=== PATIENT | female | born 1970 | race Caucasian/White ===

== ENCOUNTER 2017-02-15 20:33 | Emergency (ER) | payer BC ==
[~2017-02-15] VITALS: Ht 157.5 cm; Wt 127.0 kg
--- NOTE | 2017-02-15 20:40 | ED.ADGEN ---
Past History Past Medical History: Hypertension, Migraines Adult General Chief Complaint Chief Complaint ".. I had busy stressful day... "... And I got one of my migraines..." HPI HPI Patient is a 46 year old female who presents with above hx and complaints of one of her typical migraine headaches. She has been reportedly worked up before for her headaches including CT with no specific pathology finding. All workups been negative. Patient feels headaches are brought on by muscle tension and stress. Patient denies any trauma. Patient denies any travel. Patient denies any specific ill contacts. Patient denies any immunosuppression. Patient denies any drug use. Patient denies any History cancer. Patient denies any history of fevers. Patient does have some trapezius muscle tension and scalp is tender to palpation. Patient does have a history of hypertension and reportedly hasn't taken her meds as directed. Patient normally follows with . She does request to be treated clinically if all possible and avoid labs and CT at this time. Review of Systems Review of Systems Constitutional: Denies fever or chills [] Eyes: Denies change in visual acuity, redness, or eye pain [] HENT: Denies nasal congestion or sore throat [] Respiratory: Denies cough or shortness of breath [] Cardiovascular: No additional information not addressed in HPI [] GI: Denies abdominal pain, nausea, vomiting, bloody stools or diarrhea [] : Denies dysuria or hematuria [] Musculoskeletal: Denies back pain or joint pain [] Integument: Denies rash or skin lesions [] Neurologic: Complaints of tension headache. Denies focal weakness or sensory changes [] Endocrine: Denies polyuria or polydipsia [] Family History Family History Noncontributory Current Medications Current Medications Current Medications Medications (Trade) Dose Ordered Sig/Jose Start Time Stop Time Status Last Admin Dose Admin Clonidine HCl 0.2 mg 0.2 mg 1X ONCE 02/15/17 21:30 02/15/17 21:31 DC 02/15/17 21:33 0.2 MG Diphenhydramine HCl (Benadryl) 50 mg 1X ONCE 02/15/17 21:30 02/15/17 21:31 DC 02/15/17 21:32 50 MG Hydrocodone Bitartrate/ Ibuprofen (Vicoprofen 7.5-200) 2 tab 1X ONCE 02/15/17 21:45 02/15/17 21:46 DC 02/15/17 21:43 2 TAB Lactated Ringer's 1,000 ml @ 1,000 mls/hr Q1H 02/15/17 23:00 02/16/17 02:20 DC 02/15/17 23:42 1,000 MLS/HR Morphine Sulfate (Morphine 10mg Syringe) 10 mg 1X ONCE 02/15/17 23:00 02/15/17 23:01 DC 02/15/17 23:43 10 MG Ondansetron HCl (Zofran Odt) 8 mg 1X ONCE 02/15/17 21:30 02/15/17 21:31 DC 02/15/17 21:33 8 MG Promethazine HCl (Phenergan Im) 25 mg 1X ONCE 02/15/17 23:00 02/15/17 23:01 DC 02/15/17 23:43 25 MG Sodium Chloride (Iv Sodium Chloride 0.9% 50ml) 50 ml @ As Directed STK-MED ONCE 02/15/17 23:32 02/15/17 23:33 DC Valproic Acid 500 mg 500 mg STK-MED ONCE 02/15/17 23:32 02/15/17 23:33 DC Valproic Acid/ Sodium Chloride (Depacon/Iv Sodium Chloride 0.9% 50ml) 55 ml @ 55 mls/hr 1X ONCE 02/15/17 23:00 02/15/17 23:59 DC 02/15/17 23:44 55 MLS/HR Allergies Allergies Allergies Coded Allergies Type Severity Reaction Last Updated Verified amphetamine Allergy Severe Anaphylaxis 02/15/17 Yes dextroamphetamine Allergy Severe Anaphylaxis 02/15/17 Yes oxycodone Allergy Intermediate Hives 02/15/17 Yes Physical Exam Physical Exam Constitutional: Mild distress, non-toxic appearance. [] HENT: Normocephalic, atraumatic, bilateral external ears normal, oropharynx moist, no oral exudates, nose normal. Scalp is tender to palpation posterior. Eyes: PERRLA, EOMI, conjunctiva normal, no discharge. [] Neck: Normal range of motion, , supple, no stridor. No midline tenderness. Some trapezius spasm and tenderness Cardiovascular:Heart rate regular rhythm, no murmur [] Lungs & Thorax: Bilateral breath sounds equal at apexes on auscultation [] Abdomen: Bowel sounds normal, soft, no tenderness, no masses, no pulsatile masses. Obese Skin: Warm, dry, no erythema, no rash. [] Back: No tenderness, no CVA tenderness. [] Extremities: No tenderness, no cyanosis, no clubbing, ROM intact, no edema. [] Neurologic: Alert and oriented X 3, normal motor function, normal sensory function, no focal deficits noted. DTRs are +2 at brachial and patella. No drift. No Romberg. Right-hand dominant. Dough Cutter equal. Psychologic: Affect anxious, judgement normal, mood normal. [] Current Patient Data Vital Signs Vital Signs Date Time Temp Pulse Resp B/P Pulse Ox O2 Delivery O2 Flow Rate FiO2 02/16/17 02:15 98.7 79 16 145/87 96 Room Air Lab Results Laboratory Tests Test 02/15/17 21:20 02/15/17 23:30 Urine Collection Type Unknown Urine Color Yellow Urine Clarity Clear Urine pH 6.5 Urine Specific [place] 1.010 Urine Protein Neg (NEG-TRACE) Urine Glucose (UA) Negmg/dL (NEG) Urine Ketones (Stick) Negmg/dL (NEG) Urine Blood Neg (NEG) Urine Nitrite Neg (NEG) Urine Bilirubin Neg (NEG) Urine Urobilinogen Dipstick 0.2mg/dL (0.2 mg/dL) Urine Leukocyte Esterase Neg (NEG) Urine RBC 0/HPF (0-2) Urine WBC Occ/HPF (0-4) Urine Squamous Epithelial Cells Few/LPF Urine Bacteria 0/HPF (0-FEW) Urine Opiates Screen Neg (NEG) Urine Methadone Screen Neg (NEG) Urine Barbiturates Neg (NEG) Urine Phencyclidine Screen Neg (NEG) Urine Amphetamine/Methamphetamine Neg (NEG) Urine Benzodiazepines Screen Neg (NEG) Urine Cocaine Screen Neg (NEG) Urine Cannabinoids Screen Neg (NEG) Urine Ethyl Alcohol Neg (NEG) White Blood Count 9.2x10^3/uL (4.0-11.0) Red Blood Count 4.28x10^6/uL (3.50-5.40) Hemoglobin 12.4g/dL (12.0-15.5) Hematocrit 37.0% (36.0-47.0) Mean Corpuscular Volume 87fL (79-100) Mean Corpuscular Hemoglobin 29pg (25-35) Mean Corpuscular Hemoglobin Concent 33g/dL (31-37) Red Cell Distribution Width 12.8% (11.5-14.5) Platelet Count 260x10^3/uL (140-400) Neutrophils (%) (Auto) 62% (31-73) Lymphocytes (%) (Auto) 30% (24-48) Monocytes (%) (Auto) 6% (0-9) Eosinophils (%) (Auto) 2% (0-3) Basophils (%) (Auto) 0% (0-3) Neutrophils # (Auto) 5.8x10^3uL (1.8-7.7) Lymphocytes # (Auto) 2.8x10^3/uL (1.0-4.8) Monocytes # (Auto) 0.5x10^3/uL (0.0-1.1) Eosinophils # (Auto) 0.1x10^3/uL (0.0-0.7) Basophils # (Auto) 0.0x10^3/uL (0.0-0.2) Erythrocyte Sedimentation Rate 31 (0-25) H Prothrombin Time 9.6SEC (9.4-11.4) Prothrombin Time INR 0.9 (0.9-1.1) PTT 24SEC (23-33) Sodium Level 141mmol/L (136-145) Potassium Level 4.1mmol/L (3.5-5.1) Chloride Level 102mmol/L (98-107) Carbon Dioxide Level 33mmol/L (21-32) H Anion Gap 6 (6-14) Blood Urea Nitrogen 16mg/dL (7-20) Creatinine 0.9mg/dL (0.6-1.0) Estimated GFR (Cockcroft-Gault) 68.0 Glucose Level 125mg/dL (70-99) H Calcium Level 9.2mg/dL (8.5-10.1) Magnesium Level 1.9mg/dL (1.8-2.4) Total Bilirubin 0.3mg/dL (0.2-1.0) Direct Bilirubin 0.1mg/dL (0.0-0.2) Aspartate Amino Transferase (AST) 22U/L (15-37) Alanine Aminotransferase (ALT) 29U/L (14-59) Alkaline Phosphatase 83U/L (46-116) Creatine Kinase 304U/L (26-192) H Creatine Kinase MB (Mass) 1.1ng/mL (0.0-3.6) Creatine Kinase MB Relative Index 0.4% (0-4) Troponin I Quantitative < 0.017ng/mL (0-0.055) C-Reactive Protein 7.5mg/L (0-3.3) H Total Protein 7.5g/dL (6.4-8.2) Albumin 3.8g/dL (3.4-5.0) EKG EKG My interpretation of EKG shows a sinus rhythm at 80 bpm. No findings acute STEMI with contralateral changes. [] Radiology/Procedures Radiology/Procedures Interpretation CT shows no shift, mass, edema, bleed, or fracture [] Course & Med Decision Making Course & Med Decision Making Pertinent Labs and Imaging studies reviewed. (See chart for details). Initial presentation pt requested no labs or xrays.. Requested only tx. clinically with po meds. Re-exam pt. at 2300- Pt. reports no improvement in symptoms. Still very nauseated. Headache no better. Plan - labs and CT. Re-exam pt. at 0200- Reports marked improvement. Pt. declines spinal tap at this time. Pt. exhibits UCAR capacity. Take Zofran 8 mg up 4 times a day for nausea and vomiting. Take Tylenol and ibuprofen for pain. Take Vicoprofen 1-2 tablets up 4 times a day for marked pain. Benadryl may also be helpful 25-50 mg. Follow-up primary care. Return if any concerns. [] Final Impression Final Impression 1. Migraine- Tension Headache[] 2. History of hypertension 3. Mild elevation Sed. and CRP Problems: Dragon Disclaimer Dragon Disclaimer This electronic medical record was generated, in whole or in part, using a voice recognition dictation system. BARTOLO FAITH MD Feb 15, 2017 20:40
[2017-02-15] MEDS: DIPHENHYDRAMINE HCL 25 MG CAPSULE PO ONE (21:32)
[2017-02-15] MEDS: ONDANSETRON ODT 4 MG TAB.RAPDIS PO ONE (21:33)
[2017-02-15] MEDS: CLONIDINE HCL 0.1 MG TABLET PO ONE (21:33)
[2017-02-15] MEDS: HYDROCODON/IBUPROFEN 7.5/200MG TABLET. PO ONE (21:43)
--- NOTE | 2017-02-15 22:33 | ACF ---
Admission Criteria Forms HEADACHES Clinical Indications for Admission to Inpatient Care (Place 'X' for any and all applicable criteria): Admission is indicated for ANY ONE of the following(1)(2)(3)(4): [ ]I. Inpatient admission required rather than observational care (Also use Headaches: Observation Care as appropriate) because of ANY ONE of the following: [ ]a) Severe pain requiring acute inpatient management [ ]b) Altered mental status that is severe or persistent [ ]c) Vomiting or dehydration that is severe or persistent [ ]d) New-onset focal neurologic deficit that is severe or persistent [ ]e) Hypertension requiring inpatient treatment [ ]f) Severe (new) neurologic findings requiring inpatient care as indicated by ANY ONE of following(9)(10): [ ]1) Papilledema [ ]2) Cerebral edema [ ]3) Mass effect on CT scan [ ]4) Cerebral bleeding, ischemia, or vasospasm(16) [ ]5) Hydrocephalus(17) [ ]6) Uncontrolled seizures [ ]g) IV infusion of anticoagulation, platelet inhibitors vasoactive, or antiarrhythmic medication. [ ]h) Cerebral bleeding, hydrocephalus, or vasospasm monitoring (16) [ ]i) Increased intracranial pressure or cerebral edema monitoring (17) [ ]j) Other condition, treatment or monitoring requiring inpatient admission [ ]II. Unruptured but threatening aneurysm or vascular malformation [ ]III. Venous sinus thrombosis [ ]IV. Increased intracranial pressure [ ]V. Cerebral spinal fluid leak with decreased intracranial pressure [ ]. Medication-overuse headache that has failed all outpatient management options [ ]VII. Vasculitis (eg, giant cell (temporal) arteritis, central nervous system vasculitis) requiring IV corticosteroids, IV antithrombotic therapy, or inpatient monitoring (eg, visual symptoms or findings, other ischemic manifestations)[A](10)(11) Extended stay beyond goal length of stay may be needed for (27): [ ]a) Intractable migraine [ ]b) Subarachnoid or intracranial hemorrhage [ ]c) Malignant hypertension [ ]d) Detoxification from drug withdrawal in medication-overuse headache (29) The original [facility] [employer] content created by [facility] has been revised. The portions of the content which have been revised are identified through the use of italic text or in bold, and [employer] has neither reviewed nor approved the modified material.All other unmodified content is copyright [facility]. Please see references footnoted in the original [facility] edition 2016 PHILOMENA BARNETT Feb 15, 2017 22:33
[2017-02-15] MEDS ORDERED: ONDA8TAB12 PO (22:47)
--- NOTE | 2017-02-15 22:56 | EKG ---
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
[2017-02-15 23:23] LABS: BARBITURATES NEG (NEG); BENZODIAZEPINES NEG (NEG); CANNABINOIDS NEG (NEG); COCAINE NEG (NEG); METHADONE NEG (NEG); OPIATES NEG (NEG); PHENCYCLIDINE NEG (NEG)
--- NOTE | 2017-02-15 23:23 | RAD ---
PROCEDURE CT scan of the head without contrast 02/15/2017 HISTORY Headache and hypertension with dizziness since earlier in the evening. TECHNIQUE Unenhanced, contiguous, 5 millimeter axial sections were obtained through the head. One or more of the following individualized dose reduction techniques were utilized for this study: 1. Automated exposure control. 2. Adjustment of the mA and/or kV according to patient size. 3. Use of iterative reconstruction technique. FINDINGS The ventricles and sulci are within normal limits in size and configuration. No area of abnormal attenuation is seen involving the brain parenchyma. No extra-axial fluid collection is seen. No akull fracture is noted. IMPRESSION Negative study. Electronically signed by: Ian Vincent MD (Feb 15, 2017 23:21:35)
[2017-02-15 23:24] LABS: BACTERIA,URINE 0 /HPF (0-FEW); BILIRUBIN,URINE NEG (NEG); CLARITY,URINE CLEAR; COLOR,URINE YELLOW; GLUCOSE,URINE NEG (NEG); NITRITE,URINE NEG (NEG); RBC,URINE 0 /HPF (0-2); UROBILINOGEN,URINE 0.2 mg/dL (0.2 mg/dL); WBC,URINE OCC /HPF (0-4)
[2017-02-15 23:25] LABS: SQUAMOUS EPITHELIAL CELL,UR FEW /LPF
[2017-02-15 23:26] LABS: AMPHETAMINE/METHAMPHETAMINE NEG (NEG)
[2017-02-15] MEDS ORDERED: VALPROATE SODIUM 500 MG/5 ML VIAL IV ONE (23:32)
[2017-02-15] MEDS ORDERED: IV NORMAL SALINE 50ML 50 ML ONE (23:32)
[2017-02-15] MEDS: IV RINGERS SOLUTION,LACTATED 1,000 ML IV SCH (23:42)
[2017-02-15] MEDS: MORPHINE SULFATE 10 MG/ML SYRINGE. SQ ONE (23:43)
[2017-02-15] MEDS: PROMETHAZINE IM 25 MG/ML VIAL IM ONE (23:43)
[2017-02-15] MEDS: VALPROATE SODIUM 500 MG in IV NORMAL SALINE 50ML 50 ML IV ONE (23:44)
[2017-02-15 23:48] LABS: BASO % 0 % (0-3); EOS # 0.1 x10^3/uL (0.0-0.7); EOS % 2 % (0-3); HEMOGLOBIN 12.4 g/dL (12.0-15.5); LYMPH # 2.8 x10^3/uL (1.0-4.8); LYMPH % 30 % (24-48); MEAN CORPUSCULAR HEMOGLOBIN 29 pg (25-35); MEAN CORPUSCULAR HGB CONC 33 g/dL (31-37); MEAN CORPUSCULAR VOLUME 87 fL (79-100); MONO # 0.5 x10^3/uL (0.0-1.1); MONO % 6 % (0-9); NEUT # 5.8 x10^3uL (1.8-7.7); NEUT % 62 % (31-73); PLATELET COUNT 260 x10^3/uL (140-400); RED BLOOD COUNT 4.28 x10^6/uL (3.50-5.40); RED CELL DISTRIBUTION WIDTH 12.8 % (11.5-14.5); WHITE BLOOD COUNT 9.2 x10^3/uL (4.0-11.0)
[2017-02-16 00:09] LABS: ALBUMIN 3.8 g/dL (3.4-5.0); C REACTIVE PROTEIN 7.5 mg/L (0-3.3); CALCIUM 9.2 mg/dL (8.5-10.1); CREATININE 0.9 mg/dL (0.6-1.0); DIRECT BILIRUBIN 0.1 mg/dL (0.0-0.2); MAGNESIUM 1.9 mg/dL (1.8-2.4); POTASSIUM 4.1 mmol/L (3.5-5.1); TOTAL BILIRUBIN 0.3 mg/dL (0.2-1.0); TOTAL PROTEIN 7.5 g/dL (6.4-8.2)
[2017-02-16 00:45] LABS: SEDIMENTATION RATE 31 (0-25)
[2017-02-16] MEDS ORDERED: HYDR-79 PO (02:00)
[2017-02-16 02:15] VITALS: BP 145/87
== END 2017-02-16 02:20 | disposition home or self-care (01) ==
LOC: ER 20:37
DX: G43.909 Migraine, unspecified, not intractable, without status migrainosus (principal); G44.209 Tension-type headache, unspecified, not intractable; I10 Essential (primary) hypertension; R70.0 Elevated erythrocyte sedimentation rate; R79.82 Elevated C-reactive protein (CRP); Z88.6 Allergy status to analgesic agent
CPT/HCPCS: 36415; 70450; 80048; 80076; 80305; 81001; 82553; 83735; 84443; 84484; 85027; 85610; 85651; 85730; 86140; 93005; 96365; 96372; 99285; J2270; J2550; J3490; J7120; Q0162; Q0163; G0481

== ENCOUNTER 2018-12-27 12:55 | Emergency (ER) | payer OTHER ==
[~2018-12-27] VITALS: Ht 157.5 cm; Wt 126.1 kg
[~2018-12-27 12:55] MED LIST: HYDR-1179 PO; ONDA8TAB12 PO
[2018-12-27 13:34] LABS: BASO % 0 % (0-3); EOS # 0.1 x10^3/uL (0.0-0.7); EOS % 2 % (0-3); HEMATOCRIT 41.8 % (36.0-47.0); HEMOGLOBIN 13.8 g/dL (12.0-15.5); LYMPH # 1.3 x10^3/uL (1.0-4.8); LYMPH % 17 % (24-48); MEAN CORPUSCULAR HEMOGLOBIN 29 pg (25-35); MEAN CORPUSCULAR HGB CONC 33 g/dL (31-37); MEAN CORPUSCULAR VOLUME 86 fL (79-100); MONO # 0.6 x10^3/uL (0.0-1.1); MONO % 8 % (0-9); NEUT # 5.4 x10^3uL (1.8-7.7); NEUT % 73 % (31-73); PLATELET COUNT 267 x10^3/uL (140-400); RED BLOOD COUNT 4.85 x10^6/uL (3.50-5.40); RED CELL DISTRIBUTION WIDTH 13.2 % (11.5-14.5); WHITE BLOOD COUNT 7.4 x10^3/uL (4.0-11.0)
--- NOTE | 2018-12-27 13:38 | PHYS DOC ---
Past History Past Medical History: Hypertension, Migraines Past Surgical History: Cholecystectomy, , Hysterectomy Smoking: Non-smoker Alcohol Use: None Drug Use: None Adult General Chief Complaint Chief Complaint: CHEST PAIN HPI HPI Patient is a 48 year old female who presents with appearing of cough and right shoulder and chest pain. Patient complaining of nonproductive cough for the last 3 days with nasal congestion and low-grade fever. She complaining of right shoulder pain and substernal pain as a constant pain since yesterday and rated her pain 7/10. Patient complaining of increasing pain with movement and cough. Patient denies vomiting, diarrhea, urinary symptoms, sick contact. [facility] treatment for [facility]itis but because of chest pain and recommended to come to ER for EKG and chest x-ray. Patient does not have cardiac risk factors except for hypertension. Review of Systems Review of Systems Constitutional: Reports subjective fever Eyes: Denies change in visual acuity, redness, or eye pain [] HENT: Denies nasal congestion or sore throat [] Respiratory: Reports cough and shortness of breath Cardiovascular: No additional information not addressed in HPI [] GI: Denies abdominal pain, nausea, vomiting, bloody stools or diarrhea [] : Denies dysuria or hematuria [] Musculoskeletal: Denies back pain or joint pain [] Integument: Denies rash or skin lesions [] Neurologic: Denies headache, focal weakness or sensory changes [] Endocrine: Denies polyuria or polydipsia [] All other systems were reviewed and found to be within normal limits, except as documented in this note. Current Medications Current Medications Current Medications Medications (Trade) Dose Ordered Sig/[facility] Start Time Stop Time Status Last Admin Dose Admin Aspirin (Children'S Aspirin) 324 mg 1X ONCE 12/27/18 13:45 12/27/18 13:46 Allergies Allergies Allergies Coded Allergies Type Severity Reaction Last Updated Verified amphetamine Allergy Severe Anaphylaxis 02/15/17 Yes dextroamphetamine Allergy Severe Anaphylaxis 02/15/17 Yes oxycodone Allergy Intermediate Hives 02/15/17 Yes Physical Exam Physical Exam Constitutional: Well developed, well nourished, mild acute distress, non-toxic appearance. [] HENT: Normocephalic, atraumatic, bilateral external ears normal, oropharynx moist, no oral exudates, nose normal. [] Eyes: PERRLA, EOMI, conjunctiva normal, no discharge. [] Neck: Normal range of motion, no tenderness, supple, no stridor. [] Cardiovascular:Heart rate regular rhythm, no murmur [] Lungs & Thorax: Bilateral breath sounds clear to auscultation, reproducible substernal pain [] Abdomen: Bowel sounds normal, soft, no tenderness, no masses, no pulsatile masses. [] Skin: Warm, dry, no erythema, no rash. [] Back: No tenderness, no CVA tenderness. [] Extremities: No tenderness, no cyanosis, no clubbing, ROM intact, no edema. [] Neurologic: Alert and oriented X 3, normal motor function, normal sensory function, no focal deficits noted. [] Psychologic: Affect normal, judgement normal, mood normal. [] Current Patient Data Vital Signs Vital Signs Date Time Temp Pulse Resp B/P (MAP) Pulse Ox O2 Delivery O2 Flow Rate FiO2 12/27/18 13:02 98.9 99 20 93 Room Air EKG EKG EKG interpreted by me. EKG at 1304 showed normal sinus rhythm at rate of 100, left atrial abnormalities, poor R-wave progress in anteroseptal leads, no acute ST and T-wave abdominal monitors. Radiology/Procedures Radiology/[place] [address] IMAGING REPORT Signed PATIENT: DEBORAH PAT ACCOUNT: [id number] : 1970 LOCATION: ER AGE: 48 SEX: F EXAM STATUS: REG ER ORD. PHYSICIAN: CHRIS MCNEIL MD REASON: chest pain PROCEDURE: CHEST PA & LATERAL Chest, PA and Lateral: Technique: PA and lateral views of the chest were obtained. History: Cough. Comparison: None. Findings: The cardiomediastinal silhouette grossly appears unremarkable. Minimal prominent appearing bilateral interstitial lung markings probably mild bronchitis. IMPRESSION: Mild prominent bilateral interstitial lung markings likely mild bronchitis. Electronically signed by: Brett Swain MD (12/27/2018 1:38 PM) [place] [id number] DICTATED AND SIGNED BY: BRETT SWAIN MD DATE: 12/27/18 [id number] CC: CHRIS MCNEIL MD; KRISTI DIXON MD ~ Course & Med Decision Making Course & Med Decision Making Pertinent Labs and Imaging studies reviewed. (See chart for details) Evaluation of patient in ER showed 48-year-old female patient with complaining of cough and congestion and fever and chest pain. Patient had unremarkable EKG and chest x-ray and unremarkable cardiac enzyme. She felt better with treatment in ER. Toradol, DuoNeb, Solu-Medrol. Patient had prescription for Medrol Dosepak and Zithromax and plan to give prescription for Tussionex and instruction to increase fluid intake. Dragon Disclaimer Dragon Disclaimer This electronic medical record was generated, in whole or in part, using a voice recognition dictation system. Departure Departure: Impression: Primary Impression: Acute bronchitis Additional Impressions: Musculoskeletal chest pain Muscle strain Disposition: HOME, SELF-CARE (at 1442) Condition: IMPROVED Referrals: KRISTI DIXON MD (PCP) Patient Instructions: Acute Bronchitis, Chest Wall Pain, Cough, Adult, Muscle Strain Additional Instructions: Drink plenty of liquids Follow-up with your primary care physician in 3-5 days Return to ER if not getting better Continue Zithromax and prednisone Scripts Hydrocodone/Chlorphen P-Stirex (Tussionex Pennkinetic Susp) 115 Ml Sadia.er.12h 5 ML PO BID for cough and congestion, #60 ML Prov: CHRIS MCNEIL MD 12/27/18 Problem Qualifiers CHRIS MCNEIL MD Dec 27, 2018 13:38
[2018-12-27] MEDS ORDERED: ASPIRIN 81 MG TAB.CHEW PO ONE (13:45)
[2018-12-27 13:54] LABS: ALBUMIN 3.9 g/dL (3.4-5.0); CALCIUM 9.2 mg/dL (8.5-10.1); CREATININE 0.8 mg/dL (0.6-1.0); GFR 77.2; MAGNESIUM 1.8 mg/dL (1.8-2.4); POTASSIUM 4.2 mmol/L (3.5-5.1); TOTAL BILIRUBIN 0.9 mg/dL (0.2-1.0); TOTAL PROTEIN 7.9 g/dL (6.4-8.2)
[2018-12-27] MEDS ORDERED: IPRATRPIUM/ALBUTEROL 0.5/2.5MG 3 ML NEBU. NEB ONE (14:00)
[2018-12-27] MEDS ORDERED: KETOROLAC 30 MG/ML VIAL. IV ONE (14:00)
[2018-12-27] MEDS ORDERED: methylPREDNISolone SOD SUCC PF 125 MG/2 ML VIAL. IV ONE (14:30)
[2018-12-27 14:35] VITALS: BP 155/97
[2018-12-27] MEDS ORDERED: HYDR115S2 PO (14:44)
--- NOTE | 2018-12-27 16:25 | EKG ---
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
== END 2018-12-27 14:56 | disposition home or self-care (01) ==
LOC: ER 12:55
DX: S46.911A Strain of unspecified muscle, fascia and tendon at shoulder and upper arm level, right arm, initial encounter (principal); J20.9 Acute bronchitis, unspecified; I10 Essential (primary) hypertension; G43.909 Migraine, unspecified, not intractable, without status migrainosus; Z79.82 Long term (current) use of aspirin; Z88.8 Allergy status to other drugs, medicaments and biological substances; Z88.5 Allergy status to narcotic agent; X58.XXXA Exposure to other specified factors, initial encounter; Y93.89 Activity, other specified; Y92.89 Other specified places as the place of occurrence of the external cause; Y99.8 Other external cause status
CPT/HCPCS: 36415; 71046; 80053; 82550; 83690; 83735; 83880; 84484; 85025; 93005; 94640; 96374; 96375; 99284; J1885; J2930; J7620